=== PATIENT | male | born 1955 | race Caucasian/White ===

== ENCOUNTER → 2022-08-03 | Outpatient (CLI) | payer MEDICARE ==
[~2022-08-03] MED LIST: REGADENOSON 0.4 MG/5 ML SYR (LEXISCAN) IV ONE
[2022-08-03 13:45] VITALS: BP 176/98
--- NOTE | 2022-08-03 16:02 | Cardiology Stress Test Report ---
Stress Test Report Date of Procedure/Referring: Date of Procedure: Aug 03, 2022 PCP Admitting Physician Admitting Physician: Attending Physician: Enid Deshpande Indications: CAD Baseline Heart Rate: 81 Baseline Blood Pressure: Blood Pressure Systolic: 176 Blood Pressure Diastolic: 98 Baseline Vitals Vital Signs Date Time Temp Pulse Resp B/P (MAP) Pulse Ox O2 Delivery O2 Flow Rate FiO2 08/03/22 13:45 88 176/98 (124) Baseline EKG: Baseline EKG: NSR Summary After explaining the procedure to the patient, he signed a consent and then brought to the stress nuclear laboratory. Patient received 0.4 mg Lexiscan for stress test, ECG, heart rate and blood pressure were monitored continuously. Resting and stress dose of radio tracer were injected, imaging was acquired and reviewed in short axis, horizontal long axis and vertical long axis views. TID: 0.92 SSS: 42 SDS: 0 EF: 52 1. Patient tolerated Lexiscan well 2. Total infarction of the mid to apical anterior wall anterior septum apex and inferior apex. No reversibility was noted 3. Normal left ventricular size with hypokinesia of the anterior wall, anterior apex and apex, ejection fraction 52% 4. I suggest evaluating viability study of the anterior wall MADDIE ROBERTS MD Aug 03, 2022 16:02
== END ==
LOC: CARD 11:30
PROVIDERS: ATTEND Physician Assistant
DX: I08.0 Rheumatic disorders of both mitral and aortic valves (principal); E78.2 Mixed hyperlipidemia; I10 Essential (primary) hypertension
CPT/HCPCS: 78452; 93017; A9502; C8929; 93306

== ENCOUNTER → 2022-09-21 | Outpatient (CLI) | payer MEDICARE ==
[~2022-09-21] MED LIST changes: +ATROPINE INJECTION 1 MG/10 ML SYR (ABBOTT) IV ONE; +ATROPINE INJECTION 1 MG/10 ML SYR (ABBOTT) ONE; +DOBUTamine DRIP 250 ML IV ONE; +DOBUTamine DRIP 250 ML IV SCH; -REGADENOSON 0.4 MG/5 ML SYR (LEXISCAN) IV ONE
[2022-09-21 10:32] VITALS: BP 143/87
[2022-09-21 10:53] VITALS: BP 143/87
[2022-09-21 11:20] VITALS: BP 115/44
== END ==
LOC: CARD 10:19
PROVIDERS: ATTEND Internal Medicine Cardiovascular Disease
DX: I21.9 Acute myocardial infarction, unspecified (principal); I10 Essential (primary) hypertension; I25.10 Atherosclerotic heart disease of native coronary artery without angina pectoris

== ENCOUNTER 2022-11-09 09:43 | Day surgery (SDC) | payer MEDICARE ==
[~2022-11-09] VITALS: Ht 175.3 cm; Wt 88.3 kg
[2022-11-09] VITALS (15 sets, daily range): BP systolic 104–156; BP diastolic 65–82
[2022-11-09] MEDS ORDERED: HEParin (CATH LAB) 2,000 ML IV ONE (10:09)
[2022-11-09] MEDS ORDERED: NS IV 1000 ML 1,000 ML ONE (10:09)
[2022-11-09] MEDS ORDERED: LIDOCAINE 1% INJ 30 ML (XYLOCAINE) VIAL ONE (10:09)
[2022-11-09] MEDS ORDERED: NS IV 1000 ML 1,000 ML IV SCH (10:15)
[2022-11-09 10:35] LABS: HEMATOCRIT 50 % (40-54); HEMOGLOBIN 16.3 g/dL (13.3-17.7); MEAN CORPUSCULAR HEMOGLOBIN 29 pg (25-34); MEAN CORPUSCULAR HGB CONC 33 g/dL (32-36); MEAN CORPUSCULAR VOLUME 89 fL (80-99); MEAN PLATELET VOLUME 9.9 fL (9.0-12.2); PLATELET COUNT 219 10^3/uL (130-400); WHITE BLOOD COUNT 6.9 10^3/uL (4.3-11.0)
[2022-11-09 10:36] LABS: BILIRUBIN,URINE NEGATIVE (NEGATIVE); CLARITY,URINE CLEAR; COLOR,URINE YELLOW; GLUCOSE, URINE (UA) 2+ (NEGATIVE); KETONES,URINE NEGATIVE (NEGATIVE); LEUKOCYTE ESTERASE ,URINE NEGATIVE (NEGATIVE); NITRITE,URINE NEGATIVE (NEGATIVE); PROTEIN,URINE NEGATIVE (NEGATIVE)
--- NOTE | 2022-11-09 10:37 | Diagnostic Imaging Report ---
INDICATION: Coronary artery disease FINDINGS: The heart size and configuration normal. No vascular congestion. No failure, effusion or pneumothorax. IMPRESSION: Normal frontal chest Dictated by: Dictated on workstation # [id number]
[2022-11-09 10:44] LABS: BACTERIA,URINE NEGATIVE /HPF; RBC,URINE 0-2 /HPF; WBC,URINE RARE /HPF
[2022-11-09 10:45] LABS: URINE OTHER MOD SPERM /HPF
[2022-11-09 10:56] LABS: ALBUMIN 4.4 GM/DL (3.2-4.5); BILIRUBIN,TOTAL 0.8 MG/DL (0.1-1.0); CALCIUM 9.2 MG/DL (8.5-10.1); CREATININE SERUM 0.99 MG/DL (0.60-1.30); POTASSIUM 3.7 MMOL/L (3.6-5.0); TOTAL PROTEIN 7.1 GM/DL (6.4-8.2)
[2022-11-09] MEDS ORDERED: fentaNYL INJ 100 MCG/2 ML AMP ONE (10:56)
[2022-11-09] MEDS ORDERED: MIDAZOLAM 5 MG/5 ML (VERSED) VIAL ONE (10:57)
[2022-11-09] MEDS ORDERED: HEParin 1000 UNIT/ML (10ML VIAL) FOR BOLUS ONE (10:57)
[2022-11-09] MEDS ORDERED: NITRO DRIP 25000 MCG/D5W 250 ML IV ONE (10:57)
[2022-11-09] MEDS ORDERED: VERAPAMIL 5 MG/2 ML (CALAN) VIAL IV ONE (10:57)
[2022-11-09 10:58] LABS: PROTHROMBIN TIME PATIENT 13.4 SEC (12.2-14.7)
--- NOTE | 2022-11-09 11:03 | Cardiac Procedure Note-CS/ASA ---
Pre-Procedure Note Pre-Op Procedure Note Date of Available H&P: Oct 25, 2022 Date H&P Reviewed: Nov 09, 2022 Time H&P Reviewed: 11:00 History & Physical: H&P Reviewed, Patient Examed, No changes noted Pre-Operative Diagnosis: CAD Conscious Sedation Pre-Proced Time 11:00 ASA Score 3 For ASA 3 and 4: Consider anesthesia and medical clearance. Also, for patients with a history of failed moderate sedation consider anesthesia. Airway Lungs Heart ASA score ASA 1: a normal healthy patient ASA 2: a patient with a mild systemic disease (mid diabetes, controlled hypertension, obesity ASA 3: a patient with a severe systemic disease that limits activity (angina, COPD, prior Myocardial infarction) ASA 4: a patient with an incapacitating disease that is a constant threat to life (CHF, renal failure) ASA 5: a moribund patient not expected to survive 24 hrs. (ruptured aneurysm) ASA 6: a declared brain- patient whose organs are being harvested. For emergent operations, add the letter E after the classification Mallampati Classification Grade 3 Sedation Plan Analgesia, Amnesia, Plan communicated to team members, Discussed options with patient/fam, Discussed risks with patient/fam The patient is an appropriate candidate to undergo the planned procedure, sedation, and anesthesia. The patient immediately re-assessed prior to indication. MADDIE ROBERTS MD Nov 09, 2022 11:03
[2022-11-09] MEDS ORDERED: GBPN600T PO (11:05)
[2022-11-09] MEDS ORDERED: EZET10TA49 PO (11:05)
[2022-11-09] MEDS ORDERED: MELO15TA39 PO (11:05)
[2022-11-09] MEDS ORDERED: ZINC50TA51 PO (11:05)
[2022-11-09] MEDS ORDERED: CYCL5TAB PO (11:05)
[2022-11-09] MEDS ORDERED: LOSA25TA41 PO (11:05)
[2022-11-09] MEDS ORDERED: METO-333 PO (11:05)
[2022-11-09] MEDS ORDERED: CALC-250 PO (11:05)
[2022-11-09] MEDS ORDERED: GLUC100016 PO (11:05)
[2022-11-09] MEDS ORDERED: ROSU40TA23 PO (11:05)
[2022-11-09] MEDS ORDERED: MULT-851 PO (11:05)
[2022-11-09] MEDS ORDERED: CLOP75TA28 PO (11:05)
[2022-11-09] MEDS ORDERED: PATIENT MAY USE OWN MEDS, ALL PO SCH (12:00)
[2022-11-09] MEDS ORDERED: CLOPIDOGREL 300 MG (PLAVIX) TABLET PO ONE (12:05)
[2022-11-09] MEDS ORDERED: ASPIRIN 325 MG (5 GR) TABLET ONE (12:05)
--- NOTE | 2022-11-09 12:06 | Cardiac Cath Report ---
Cardiac Cath Report Physician (s)/Financial Legal Assistant (s) Physician MADDIE ROBERTS MD Pre-Procedure Diagnosis Pre-Procedure Diagnosis: CAD Post-Procedure Note Procedure Start Date: Nov 09, 2022 Name of Procedure: Left heart catheterization Balloon angioplasty and stenting to a chronic total occlusion in the proximal LAD Findings/Procedure Note PROCEDURE NOTE: 67-year-old gentleman with history of coronary artery disease, had multiple interventions in the past. Stenting to the LAD. Stress test showed total infarction of the anterior wall, dobutamine stress echo showed viable anterior wall, patient scheduled for angiogram possible angioplasty. After explaining the procedure to the patient, all pros and cons were explained, all questions were answered. The patient signed the consent and then he was placed in the cardiac catheterization laboratory. Groin was prepped in SL fashion local anesthesia was used. Sheath was placed in the right radial artery, after placement of the sheath he was given vasodilator and 3000 units of heparin, patient forcefully pulled his arm out from under the drape which removed it from the drape but the sheath continue to be on the drape. He pulled the sheath out. Manual pressure applied then vascular band placed and I decided to proceed with a groin access. Sheath placed in the right femoral artery. Roma' right and left catheter were used to access the coronary system. Roma right was prolapsed to the left ventricular cavity, pressure was measured, pullback LV to aorta was done. Patient has total occlusion of the LAD proximally, EBU 3.5 guide was advanced and whisper extra-support was used advanced through the occlusion to the distal LAD. I proceeded with predilatation with 2.5 x 20 mm balloon then placed a stent proximal to the old stent overlapping with it at the proximal LAD using aashish point 2.75 x 12 mm expanded to 2.9 mm under 16 tricia then I used the same balloon to dilate the stents in the proximal LAD. Angiogram showed excellent results with CORWIN-3 flow. At the end of the procedure the sheath was removed. Closure device was deployed FINDINGS: Hemodynamics LV 131/15, end-diastolic pressure of 15 Aorta 113/61 mean of 84 ANATOMY: Left Main has no obstructive disease Left Anterior Descending has total occlusion within the stent in the proximal LAD, chronic total occlusion, successful angioplasty then stenting using 2.75 x 12 mm aashish point stent expanded to 2.9 mm overlapping with the previous stents then balloon angioplasty within all the stent and expanding them to 2.8 mm with excellent results. No residual stenosis Second diagonal artery has 80% stenosis, was jailed by the stent and continue to have 80% stenosis. Good flow in the diagonal artery Left Circumflex is moderate in size nondominant artery with 20% stenosis nonobstructive disease Right Coronary Artery is dominant artery with no significant obstructive disease LV Gram was not done, pressure was measured PERCUTANEOUS INTERVENTION: Pre stenosis 100% Post Stenosis 0% Pre CORWIN flow 1 Post CORWIN flow 3 Dominance right coronary artery CONCLUSION: 1. Chronic total occlusion within the stent in the proximal LAD, viable myocardium by stress echo. Status post balloon angioplasty within the LAD stent and deployment of 2.75 x 12 mm aashish point Malinda stent in the proximal LAD overlapping with the old stents with excellent results that stent was expanded to 2.9 mm and the LAD stents were expanded to 2.8 mm with excellent results and no residual stenosis 2. 80% stenosis in the second diagonal artery that was present prior to the intervention was jailed by the stent in the proximal LAD and is still patent with persistent 80% stenosis. 3. Mild disease in the circumflex artery with no obstructive disease and a dominant right coronary artery 4. Normal left ventricular end-diastolic pressure DISCUSSION AND RECOMMENDATION: Patient was loaded with aspirin and Plavix. We will continue monitoring and continue to maximize medical therapy Anesthesia Type: Conscious Sedation Estimated blood loss (mL): 25 ml Contrast Amount: 85 ml Total Radiation Dose: 813 mGy Post-Procedure Diagnosis Post-operative diagnosis: Coronary artery disease Hypertension Hyperlipidemia Diabetes mellitus MADDIE ROBERTS MD Nov 09, 2022 12:06
[2022-11-09] MEDS ORDERED: oxyCODONE/APAP 5/325MG (PERCOCET 5) TABLET PO NR (19:30)
[2022-11-09] MEDS: CYCLOBENZAPRINE 10 MG (FLEXERIL) TAB PO SCH (20:31)
[2022-11-09] MEDS: GABAPENTIN 600 MG (NEURONTIN) TAB PO SCH (20:32)
[2022-11-09] MEDS: meTOprolol TARTRATE 25 MG (LOPRESSOR) TABLET PO SCH (20:32)
[2022-11-09] MEDS ORDERED: NON-FORMULARY MEDICATION 1 EA EA (Glucosamine Sulfate 2Kcl (Glucosamine) 1,000 MG) PO SCH (21:00)
[2022-11-09] MEDS ORDERED: [UNRECOGNIZED DRUG - REMARK] PO SCH (21:00)
[2022-11-10] VITALS: BP 144/84
[2022-11-10 04:00] VITALS: BP 145/84
[2022-11-10 05:59] LABS: HEMATOCRIT 43 % (40-54); HEMOGLOBIN 14.5 g/dL (13.3-17.7); MEAN CORPUSCULAR HEMOGLOBIN 30 pg (25-34); MEAN CORPUSCULAR HGB CONC 34 g/dL (32-36); MEAN CORPUSCULAR VOLUME 88 fL (80-99); MEAN PLATELET VOLUME 10.1 fL (9.0-12.2); PLATELET COUNT 182 10^3/uL (130-400); WHITE BLOOD COUNT 8.2 10^3/uL (4.3-11.0)
[2022-11-10 06:09] LABS: POTASSIUM 3.7 MMOL/L (3.6-5.0)
[2022-11-10 06:10] LABS: CALCIUM 8.3 MG/DL (8.5-10.1)
[2022-11-10] MEDS ORDERED: PANT40SU PO (06:12)
--- NOTE | 2022-11-10 06:12 | Discharge Inst-Post CATH ---
Discharge Inst-CATH/EP Problems Reviewed?: Yes Post Cardiac Cath/EP D/C Inst Follow Up/Plan Appointment with Dr Neal in 2-4 weeks <b>CARDIAC CATH/EP PROCEDURE DISCHARGE INSTRUCTIONS</b> ACTIVITY * Go Home directly and rest. * Limit activity of the leg (or wrist if it was used) for 7 days including aerob ics, swimming, jogging, bicycling, etc. * Restrict stair-climbing for 7 days if possible, if not, climb up with your non-cath leg, then bring together on the same step. * Avoid lifting, pushing, pulling or excessive movement of the affected extremity for 7 days. * Customary sexual activity may be resumed after 2 days-use caution not to use a position that strains or causes pain to the affected extremity. * No driving for 24 hours. * NO SMOKING. * Avoid straining for bowel movements for 7 days. * Gentle walking on level ground is allowed. * Returning to work will depend on the type of procedure and the results. Your doctor will discuss this with you. CALL YOUR DOCTOR FOR ANY OF THE FOLLOWING: *If bleeding from the puncture site occurs- Apply gentle pressure to site with clean cloth and call your doctor or EMS. * If a knot or lump forms under the skin, increases in size, or causes pain. * If bruising appears to be worsening or moving further down your leg instead of disappearing. * Temperature above 101 F. CARE OF YOUR GROIN INCISION; * Bruising or purple discoloration of the skin near the puncture site is common. * You may shower only, no bathtub bathing for 5 days. Be careful to avoid slipping as your leg may feel stiff. * If a closure device was used on your femoral artery, please see the attached guide regarding care of the device and your leg. * Leave dressing on FOR 24 hours. CARE OF YOUR WRIST INCISION; * Bruising or purple discoloration of the skin near the puncture site is common. * You may shower. * DO NOT submerge wrist. * Leave dressing on FOR 24 hours. MADDIE NEAL MD Nov 10, 2022 06:12
[2022-11-10 06:14] LABS: CREATININE SERUM 0.77 MG/DL (0.60-1.30)
[2022-11-10 08:00] VITALS: BP 127/76
--- NOTE | 2022-11-10 08:37 | Cardiology Progress Note ---
Subjective Date Seen by Provider: Nov 10, 2022 Time Seen by Provider: 08:35 Subjective/Events-last exam Patient was seen at bedside, laying down comfortably, groin is healing well. Review of Systems General: No Chills, No Night Sweats, No Fatigue, No Malaise, No Appetite, No Other HEENT: No Head Aches, No Visual Changes, No Eye Pain, No Ear Pain, No Dysphasia, No Sinus Congestion, No Post Nasal Drip, No Sore Throat, No Other Pulmonary: No Dyspnea, No Cough, No Pleuritic Chest Pain, No Other Cardiovascular: No: Chest Pain, Palpitations, Orthopnea, Paroxysmal Noc. Dyspnea, Edema, Lt Headedness, Other Objective-Cardiology Exam Last Set of Vital Signs Vital Signs 11/10/22 08:00 Temp 37.0 Pulse 84 Resp 16 B/P (MAP) 127/76 (93) Pulse Ox 95 O2 Delivery Nasal Cannula O2 Flow Rate 2.00 I&O Intake and Output 11/10/22 00:00 Intake Total 500 ml Output Total 0 ml Balance 500 ml Intake Oral 500 ml Output Urine Total 0 ml # Voids 2 Daily Weight Change No General: Alert, Oriented X3, Cooperative HEENT: Atraumatic, PERRLA Neck: Supple, No JVD, No Thyromegaly Lungs: Clear to Auscultation, Normal Air Movement Heart: Regular Rate, Normal S1, Normal S2, No Murmurs Abdomen: Normal Bowel Sounds, Soft, No Tenderness, No Hepatosplenomegaly, No Masses Extremities: No Clubbing, No Cyanosis, No Edema, Normal Pulses, No Tenderness/Swelling Skin: No Rashes, No Breakdown, No Significant Lesion Neuro: Normal Gait, Normal Speech, Strength at 5/5 X4 Ext, Normal Tone, Sensa tion Intact Psych/Mental Status: Mental Status NL, Mood NL Results Lab Laboratory Tests 11/09/22 10:25 11/10/22 05:34 A/P-Cardiology Admission Diagnosis Coronary artery disease Congestive heart failure, chronic compensated left ventricular systolic dysfunction, ischemic cardiomyopathy Hypertension Hyperlipidemia. Assessment/Plan Coronary artery disease, cardiac catheterization done on November 09, 2022 with chronic total occlusion of the LAD, successful angioplasty and stenting of the LAD with excellent result Congestive heart failure, chronic left ventricular systolic dysfunction, ischemic cardiomyopathy, ejection fraction 45 to 50% Continue with current treatment and monitor Hypertension, monitor blood pressure Hyperlipidemia, continue to monitor lipids MADDIE ROBERTS MD Nov 10, 2022 08:37
[2022-11-10] MEDS: GABAPENTIN 600 MG (NEURONTIN) TAB PO SCH (08:50)
[2022-11-10] MEDS: meTOprolol TARTRATE 25 MG (LOPRESSOR) TABLET PO SCH (08:51)
[2022-11-10] MEDS: CYCLOBENZAPRINE 10 MG (FLEXERIL) TAB PO SCH ×2 (08:57→13:38)
[2022-11-10] MEDS ORDERED: MELOXICAM PO SCH (09:00)
[2022-11-10] MEDS ORDERED: [UNRECOGNIZED DRUG - REMARK] PO SCH (09:00)
[2022-11-10] MEDS ORDERED: [UNRECOGNIZED DRUG - REMARK] PO SCH (09:00)
[2022-11-10] MEDS ORDERED: CLOPIDOGREL 75 MG (PLAVIX) TABLET PO SCH (09:00)
[2022-11-10] MEDS ORDERED: eZETimibe 10 MG (ZETIA) TABLET PO SCH (09:00)
[2022-11-10] MEDS ORDERED: VITAMIN D3 125 MCG (5,000 UNITS) CAPSULE PO SCH (09:00)
[2022-11-10] MEDS ORDERED: ASPIRIN E.C. 81 MG (ECOTRIN) TAB PO SCH (09:00)
[2022-11-10] MEDS ORDERED: LOSARTAN 25 MG (COZAAR) TAB PO SCH (09:00)
[2022-11-10] MEDS: NS IV 1000 ML 1,000 ML IV SCH ×3 (09:17→09:19)
[2022-11-10 11:42] VITALS: BP 127/68
[2022-11-10 13:19] VITALS: BP 148/87
== END 2022-11-10 13:44 | disposition home or self-care (01) ==
LOC: CATH 09:43 → CSD 12:21 → CATH 11-10 13:44
PROVIDERS: ATTEND Internal Medicine Cardiovascular Disease
DX: I25.10 Atherosclerotic heart disease of native coronary artery without angina pectoris (principal); E78.5 Hyperlipidemia, unspecified; E11.9 Type 2 diabetes mellitus without complications; I25.82 Chronic total occlusion of coronary artery; I25.5 Ischemic cardiomyopathy; I11.0 Hypertensive heart disease with heart failure; I50.22 Chronic systolic (congestive) heart failure; K21.9 Gastro-esophageal reflux disease without esophagitis; I65.23 Occlusion and stenosis of bilateral carotid arteries; Z79.899 Other long term (current) drug therapy
CPT/HCPCS: 71045; 80048; 80053; 80061; 81000; 82947 ×2; 85027 ×2; 85610; 85730; 87081; 93005 ×2; 93458; C1725; C1760; C1769; C1874; C1887; C1894 ×2; C9607; 36415